=== PATIENT | male | born 2000 | race Two or more races ===

== ENCOUNTER 2024-12-06 04:48 | Emergency (ER) | payer MEDICAID, SELFPAY ==
[2024-12-06 04:59] VITALS: BMI 30.7
[2024-12-06 05:08] VITALS: BP 129/83; PULSE 102; RESP 18; TEMP 36.8; O2SAT 96
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
[2024-12-06 06:25] VITALS: BP 141/73; PULSE 83; RESP 19; TEMP 36.4; O2SAT 100
[2024-12-06 07:50] VITALS: BP 119/65; PULSE 91; RESP 19; TEMP 36.6; O2SAT 97
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
[2024-12-06 11:30] VITALS: BP 121/69; PULSE 86; RESP 18; TEMP 36.8; O2SAT 100
[2024-12-06] MEDS: IBUPROFEN TAB 400 MG TABLET 800 MG PO (11:48)
[2024-12-06] MEDS: ACETAMINOPHEN 500 MG TABLET 1000 MG PO (11:49)
[2024-12-06 12:38] VITALS: BP 120/62; PULSE 85; RESP 18; TEMP 36.6; O2SAT 100
== END 2024-12-06 12:39 ==
PROVIDERS: Emergency Provider Emergency Medicine
DX: Z02.89 Encounter for other administrative examinations (principal); S00.81XA Abrasion of other part of head, initial encounter; Y04.8XXA Assault by other bodily force, initial encounter; S40.811A Abrasion of right upper arm, initial encounter
CPT/HCPCS: 70450; 70486; 72125; 73100; 73120; 99284; A9270